=== PATIENT | male | born 1965 | race Two or more races ===

== ENCOUNTER 2022-01-19 16:54 | Inpatient (IN) | payer BC, OTHER ==
[~2022-01-19] VITALS: Ht 165.1 cm; Wt 79.4 kg
[2022-01-19 18:04] LABS: Hematocrit 45.3 % (41.0-53.0); Hemoglobin 14.9 g/dL (13.5-17.5); Mean Corpuscular Hemoglobin 27.5 pg (28.0-32.0); Mean Corpuscular Hgb Conc. 32.8 g/dL (32.0-36.0); Mean Corpuscular Volume 83.8 fL (80.0-100.0); Red Blood Cells 5.41 10^6/uL (4.5-5.90); Red Cell Distribution Width 14.4 % (11.8-14.3); White Blood Cell 6.7 10^3/uL (4.4-10.8)
[2022-01-19 18:05] LABS: Band Neutrophils % (manual) 0; Basophils % (manual) 0 (0.0-2.0); Blast Cells 0; Metamyelocytes % 0; Myelocytes % 0; Promyelocytes % 0; Reactive Lymphocytes 0
[2022-01-19 18:17] LABS: INR 1.03 (0.9-1.15); Partial Thromboplastin Time 26.6 sec (24.6-33.4)
[2022-01-19 18:19] LABS: Calcium 8.6 mg/dL (8.5-10.1); Eosinophils % (manual) 4 (0-7); Lymphocytes % (manual) 28 (10.0-50.0); Magnesium 2.2 mg/dL (1.6-2.6); Monocytes % (manual) 9 (0-12)
[2022-01-19 18:25] LABS: BUN/Creatinine Ratio 14.6; Bilirubin, Total 0.2 mg/dL (0.2-1.0); Total Protein 7.6 g/dL (6.4-8.2)
[2022-01-19] MEDS ORDERED: POTASSIUM CHL 20 Meq TABLET PO ONE (19:15)
[2022-01-19] MEDS: POTASSIUM CHL 20MEQ/100ML 100 ML IV SCH (20:56)
[2022-01-19] MEDS ORDERED: MORPHINE SULFATE 4 MG/ML SYR/VIAL IV ONE (21:00)
[2022-01-19] MEDS ORDERED: ONDANSETRON HCL 4 MG/2 ML VIAL IV PRN (21:15)
[2022-01-19] MEDS ORDERED: MORPHINE SULFATE INJ 2 MG/ml SYRG IV PRN ×2 (21:15→23:45)
[2022-01-19] MEDS ORDERED: hydrALAZINE HCL 20 MG/ML VL IV PRN (21:15)
[2022-01-19] MEDS ORDERED: DOCUSATE SOD 100 MG CAP PO PRN (21:15)
[2022-01-19] MEDS ORDERED: ACETAMINOPHEN 325 MG TAB PO PRN (21:15)
[2022-01-19] MEDS ORDERED: HYDROcodone-ACET 5/325MG TAB PO PRN (21:15)
[2022-01-19] MEDS: SODIUM CHLOR 0.9% PF (SALINE LOCK) 10ML VIAL/SYR IV SCH (22:15)
[2022-01-19] MEDS: ATORVASTATIN 20 MG TAB PO SCH (22:22)
[2022-01-19] MEDS: METOPROLOL TARTRATE 25 MG TAB PO SCH (22:23)
[2022-01-19] MEDS ORDERED: NITROGLYCERIN 0.4 MG SL TAB SL PRN (23:45)
[2022-01-20] VITALS (7 sets, daily range): BP systolic 101–134; BP diastolic 42–87
[2022-01-20] MEDS ORDERED: POTASSIUM CHL 20MEQ/100ML 100 ML IV ONE (05:21)
[2022-01-20] MEDS: SODIUM CHLOR 0.9% PF (SALINE LOCK) 10ML VIAL/SYR IV SCH ×3 (06:00→22:38)
[2022-01-20] MEDS: POTASSIUM CHL 20MEQ/100ML 100 ML IV SCH (06:03)
[2022-01-20 07:04] LABS: Basophils # (auto) 0.1 10 ^3/uL (0-0.2); Basophils % (auto) 1.2 % (0.0-2.0); Eosinophils # (auto) 0.2 10 ^3/uL (0-0.8); Eosinophils % (auto) 3.5 % (0.0-7.0); Hematocrit 45.6 % (41.0-53.0); Hemoglobin 14.9 g/dL (13.5-17.5); Lymphocytes # (auto) 1.9 10 ^3/uL (0.4-5.4); Lymphocytes % (auto) 35.4 % (10.0-50.0); Mean Corpuscular Hemoglobin 27.5 pg (28.0-32.0); Mean Corpuscular Hgb Conc. 32.8 g/dL (32.0-36.0); Mean Corpuscular Volume 83.8 fL (80.0-100.0); Monocytes # (auto) 0.3 10 ^3/uL (0-1.3); Monocytes % (auto) 5.9 % (0.0-12.0); Neutrophils # (auto) 2.9 10 ^3/uL (1.6-8.6); Nucleated Red Blood Cells % 0.2 %; Red Blood Cells 5.43 10^6/uL (4.5-5.90); Red Cell Distribution Width 14.6 % (11.8-14.3); White Blood Cell 5.4 10^3/uL (4.4-10.8)
[2022-01-20 07:21] LABS: Albumin 3.9 g/dL (3.4-5.0); BUN/Creatinine Ratio 12.4; Calcium 8.8 mg/dL (8.5-10.1); Potassium 3.6 mmol/L (3.5-5.1)
[2022-01-20 07:24] LABS: Bilirubin, Total 0.7 mg/dL (0.2-1.0); Total Protein 7.4 g/dL (6.4-8.2)
[2022-01-20] MEDS: ASPirin 81 mg TAB PO SCH (10:18)
[2022-01-20] MEDS: METOPROLOL TARTRATE 25 MG TAB PO SCH ×2 (10:18→22:40)
[2022-01-20] MEDS: ATORVASTATIN 20 MG TAB PO SCH (22:38)
[2022-01-21 05:00] VITALS: BP 133/81
[2022-01-21] MEDS: SODIUM CHLOR 0.9% PF (SALINE LOCK) 10ML VIAL/SYR IV SCH ×3 (05:21→21:52)
[2022-01-21] MEDS: ASPirin 81 mg TAB PO SCH (08:49)
[2022-01-21 09:00] VITALS: BP 129/87
[2022-01-21 09:06] LABS: Free T3 3.21 pg/mL (2.3-4.2); Free T4 (Free Thyroxine) 0.97 ng/dL (0.89-1.76)
[2022-01-21] MEDS: METOPROLOL TARTRATE 25 MG TAB PO SCH ×2 (10:00→21:55)
[2022-01-21] MEDS ORDERED: ADENOSINE 68 MG in GIVE UN-DILUTED 0 ML IV ONE (10:00)
[2022-01-21 13:00] VITALS: BP 128/98
[2022-01-21 17:00] VITALS: BP 146/99
[2022-01-21] MEDS: ATORVASTATIN 20 MG TAB PO SCH (21:55)
[2022-01-21 22:00] VITALS: BP 129/99
[2022-01-22 05:00] VITALS: BP 132/86
[2022-01-22] MEDS: SODIUM CHLOR 0.9% PF (SALINE LOCK) 10ML VIAL/SYR IV SCH (05:32)
[2022-01-22 08:41] VITALS: BP 135/97
[2022-01-22] MEDS: ASPirin 81 mg TAB PO SCH (09:13)
[2022-01-22] MEDS: METOPROLOL TARTRATE 25 MG TAB PO SCH (09:14)
[2022-01-22] MEDS ORDERED: ATOR40TA52 PO (10:41)
[2022-01-22] MEDS ORDERED: METO-289 PO (10:41)
[2022-01-22 12:36] VITALS: BP 144/103
[2022-01-22 13:00] VITALS: BP 135/97
== END 2022-01-22 13:34 | disposition home or self-care (01) | DRG 303 ==
LOC: EDBD 16:54 → ER 16:54 → OVERFLOW 23:36 → TELE-CENTR 01-20 04:30
PROVIDERS: ADMIT Nurse Practitioner Family; ATTEND Internal Medicine
DX: I25.10 Atherosclerotic heart disease of native coronary artery without angina pectoris (principal); E78.5 Hyperlipidemia, unspecified; E87.6 Hypokalemia; Z20.822 Contact with and (suspected) exposure to COVID-19; I10 Essential (primary) hypertension; I25.2 Old myocardial infarction; Z95.1 Presence of aortocoronary bypass graft; Z95.5 Presence of coronary angioplasty implant and graft
CPT/HCPCS: 36415; 71045; 78452; 80053; 83735; 83880; 84439; 84443; 84481; 84484; 85007; 85025; 85027; 85379; 85610; 85730; 93005; 93017; 93306; 96365; 99291; G0378; J0153; J3480